=== PATIENT | female | born 1930 | race Caucasian/White ===

== ENCOUNTER 2016-10-10 12:55 | Emergency (ER) | payer MEDICARE, OTHER ==
[~2016-10-10] VITALS: Ht 162.6 cm; Wt 65.0 kg
[2016-10-10 13:11] VITALS: Ht 162.6 cm; Wt 65.0 kg
[2016-10-10] MEDS ORDERED: SOD CHLORIDE 0.9% 500 ML IV STA (18:12)
[2016-10-10 18:44] LABS: ADD SCAN DIFF NO
[2016-10-10 18:49] LABS: BASOPHILS % 0.1 % (0.0-2.0); EOSINOPHILS % 0.4 % (0.0-7.0); HEMATOCRIT 37.4 % (37.0-47.0); HEMOGLOBIN 11.5 g/dl (12.0-16.0); LYMPHOCYTES % 13.4 % (15.0-51.0); MEAN CORPUSCULAR HEMOGLOBIN 27.9 pg (29.0-33.0); MEAN CORPUSCULAR HGB CONC 30.7 g/dl (32.0-37.0); MEAN CORPUSCULAR VOLUME 90.8 fl (82.0-101.0); MEAN PLATELET VOLUME 10.3 fl (7.4-10.4); MONOCYTE # 0.7 10^3/ul (0.3-0.9); MONOCYTES % 8.4 % (0.0-11.0); NEUTROPHILS % 77.6 % (39.0-77.0); PLATELET COUNT 137 10^3/UL (140-415); RED BLOOD COUNT 4.12 10^6/ul (4.20-5.40); RED CELL DISTRIBUTION WIDTH 13.5 % (11.5-14.5); WHITE BLOOD COUNT 7.8 10^3/ul (4.8-10.8)
[2016-10-10] MEDS ORDERED: IBUP400T22 PO ×2 (18:55→19:56)
[2016-10-10] MEDS ORDERED: METF850T PO ×2 (18:56→19:29)
[2016-10-10 19:02] LABS: ANION GAP 12 (8-16); BLOOD UREA NITROGEN 12 mg/dl (7-20); CALCIUM 9.6 mg/dl (8.4-10.2); CARBON DIOXIDE 24 mmol/L (21-31); CHLORIDE 104 mmol/L (97-110); CREATININE 0.62 mg/dl (0.44-1.00); GLUCOSE 191 mg/dl (70-220); INR 1.02; POTASSIUM 4.6 mmol/L (3.5-5.1); PROTIME 13.4 Sec (12.2-14.2); SODIUM 135 mmol/L (135-144)
[2016-10-10 19:03] LABS: PARTIAL THROMBOPLASTIN TIME 26.9 Sec (25.0-35.0)
[2016-10-10 19:07] LABS: D-DIMER 556.25 ng/ml (<460)
[2016-10-10 19:15] LABS: B-TYPE NATRIURETIC PEPTIDE 539 PG/ML (0-450); TROPONIN-I < 0.012 ng/ml (0.00-0.12)
--- NOTE | 2016-10-10 19:21 | RADRPT ---
PROCEDURE: XR Chest 1 View. CLINICAL INDICATION: Chest pain TECHNIQUE: AP view of the chest was obtained. COMPARISON: None. FINDINGS: The heart size is within normal limits. Calcified atherosclerosis is noted in the aorta. Scattered atelectasis is identified in the left lower lobe and at the right lung base. No consolidations are i dentified. No pneumothorax is seen. The osseous structures are osteopenic, but appear grossly inta ct. Degenerative changes are seen in the shoulders. IMPRESSION: Calcified atherosclerosis in the aorta. Scattered atelectasis in the left lower lobe and at the right lung base. RPTAT: AA .Graham Vela MD, MD Date Time Electronically viewed and signed by .Graham Vela MD, on 10/10/2016 19:20 .P/
--- NOTE | 2016-10-10 19:26 | ERD ---
ER Documentation Chief Complaint Date/Time DATE: 10/10/16 TIME: 19:25 Chief Complaint NON RADIATING CP.SORE THROAT X 3 DAYS HPI 86-year-old female. [employer]ular Kn[employer] C[employer] use. [place]istanian-speaking. The patient describes 8 months of cough that is dry, nonproductive. She denies any fevers or chills. She is describing some mild sore throat and chest pain with coughing over this timeframe. She has not had a chest x-ray during this timeframe. It appears she has been going to urgent care clinics, she has tried antibiotics with no improvement. She denies any weight loss, no pleuritic pain, no exertional symptoms, no calf swelling. She has a history of diabetes. She is a non-smoker. ROS All systems reviewed and are negative except as per history of present illness. Medications Home Meds Active Scripts Albuterol Sulfate* (Ventolin HFA*) 18 Gm Hfa.aer.ad, 2 PUFF INHALATION Q4H, #1 INHALER Prov:PELON HALL MD 10/10/16 Azithromycin* (Zithromax*) 250 Mg Tablet, 250 MG PO .ZPACK DIRECTED, #6 TAB TAKE 500 MG (2 TABS) THE FIRST DAY THEN 250 MG (1 TAB) DAYS 2-5 Prov:PELON HALL MD 10/10/16 Reported Medications Ibuprofen* (Ibuprofen*) 400 Mg Tablet, 400 MG PO Q6H Y for PAIN, TAB 10/10/16 Metformin Hcl* (Metformin Hcl*) 850 Mg Tablet, 850 MG PO WITH BREAKFAST DINNE, # 60 TAB 10/10/16 Discontinued Reported Medications Metformin Hcl* (Metformin Hcl*) 850 Mg Tablet, 850 MG PO WITH BREAKFAST DINNE, # 60 TAB 10/10/16 Ibuprofen* (Ibuprofen*) 400 Mg Tablet, 400 MG PO Q6H Y for PAIN, TAB 10/10/16 Allergies Allergies: Coded Allergies: No Known Allergy (Verified Allergy, Unknown, 05/30/08) PMhx/Soc Medical and Surgical Hx: pt denies Medical Hx, pt denies Surgical Hx Hx Alcohol Use: No Hx Substance Use: No Hx Tobacco Use: No Smoking Status: Never smoker FmHx Family History: diabetes Physical Exam Vitals Vital Signs Date Time Temp Pulse Resp B/P Pulse Ox O2 Delivery O2 Flow Rate FiO2 10/10/16 22:27 108 18 144/81 96 Room Air 10/10/16 21:18 98.1 113 18 141/77 97 Room Air 10/10/16 19:31 97.9 100 16 136/66 98 Room Air 10/10/16 18:00 98.0 103 16 154/78 98 Room Air 10/10/16 13:11 97.9 89 18 168/76 98 Physical Exam General: Well developed, well nourished, no acute distress Head: Normocephalic, atraumatic. Eyes: Pupils equally reactive, EOM intact ENT: Moist mucous membranes Neck: Supple, no lymphadenopathy Respiratory: Lungs clear bilaterally, no distress Cardiovascular: RRR, no murmurs, rubs, or gallops Abdominal: Soft, non-tender, non-distended, no peritoneal signs : Deferred MSK: No edema, no unilateral swelling, 5/5 strength Neurologic: Alert and oriented, moving all extremities, normal speech, no focal weakness, no cerebellar signs Skin: No rash Psych: Normal mood Result Diagram: 10/10/16182910/10/16 1830 Results 24 hrs Laboratory Tests Test 10/10/16 18:30 White Blood Count 7.810^3/ul Red Blood Count 4.1210^6/ul Hemoglobin 11.5g/dl Hematocrit 37.4% Mean Corpuscular Volume 90.8fl Mean Corpuscular Hemoglobin 27.9pg Mean Corpuscular Hemoglobin Concent 30.7g/dl Red Cell Distribution Width 13.5% Platelet Count 79106^3/UL Mean Platelet Volume 10.3fl Neutrophils % 77.6% Lymphocytes % 13.4% Monocytes % 8.4% Eosinophils % 0.4% Basophils % 0.1% Nucleated Red Blood Cells % 0.0/100WBC Neutrophils # 6.010^3/ul Lymphocytes # 1.010^3/ul Monocytes # 0.710^3/ul Eosinophils # 0.010^3/ul Basophils # 0.010^3/ul Nucleated Red Blood Cells # 0.010^3/ul Prothrombin Time 13.4Sec Prothrombin Time Ratio 1.0 INR International Normalized Ratio 1.02 Activated Partial Thromboplast Time 26.9Sec D-Dimer 556.25ng/ml D-Dimer Comment Sodium Level 135mmol/L Potassium Level 4.6mmol/L Chloride Level 104mmol/L Carbon Dioxide Level 24mmol/L Anion Gap 12 Blood Urea Nitrogen 12mg/dl Creatinine 0.62mg/dl Glucose Level 191mg/dl Calcium Level 9.6mg/dl Troponin I < 0.012ng/ml B-Type Natriuretic Peptide 539PG/ML Current Medications Medications (Trade) Dose Ordered Sig/Jerry Route PRN Reason Start Time Stop Time Status Last Admin Dose Admin Sodium Chloride (NS) 500 ml @ 500 mls/hr Q1H STAT IV 10/10/16 18:12 10/10/16 19:11 DC 10/10/16 18:38 IV Flush 10 ml 10 ml STK-MED ONCE .ROUTE 10/10/16 19:53 10/10/16 19:54 DC 10/10/16 19:56 Sodium Chloride 100 ml @ ud STK-MED ONCE .ROUTE 10/10/16 19:53 10/10/16 19:54 DC 10/10/16 19:56 Iohexol (Omnipaque) 100 ml @ ud STK-MED ONCE .ROUTE 10/10/16 19:53 10/10/16 19:54 DC 10/10/16 19:56 Procedures/MDM EKG, MONITORS, & DIAGNOSTIC IMAGING: EKG: I reviewed and interpreted a 12-lead EKG. Rhythm: Normal sinus rhythm Ectopy: None Intervals: No abnormalities ST segments: No elevations or depressions T waves: No contiguous inversions Chest x-ray: I reviewed and interpreted a 1 view of the chest Mediastinum: No enlargement Cardiac silhouette: No cardiomegaly Airspace: Clear lung torres bilaterally without evidence of pneumothorax Bones: No evidence of fracture CT PE: IMPRESSION: 1. No pulmonary embolism is identified. 2. Bilateral bronchial wall thickening is noted, suggesting bronchitis. 3. Coronary arterial and aortic atherosclerotic calcifications are present. 4. No mass, lymphadenopathy, or focal acute infiltrate is seen. 5. Indeterminate 2.3 cm left thyroid nodule is noted - consider ultrasound correlation. RPTAT: HDWR LAB INTERPRETATION: Positive d-dimer, normal white count, negative troponin MEDICAL DECISION MAKING: I do not believe this is a cardiogenic process. The patient has 8 months of cough. No signs of CHF. The patient is unlikely to have a viral process given this chronicity of cough. Consider medication related, age-related, reflux. Also consider possible pulmonary embolism, wells low risk criteria therefore d- dimer appropriate. Again, given duration of symptoms infectious process less likely. ER COURSE: D-dimer positive. CTPA ordered. CTPA shows evidence of bronchitis. It would be reasonable to start this patient on azithromycin, inhaler. The patient was referred to primary care physician. She has no hypoxia, no troponin elevation she is otherwise well- appearing with multiple months of symptoms that are unchanged. The patient is safe for discharge. I kept the patient and/or family informed of laboratory and diagnostic imaging results throughout the emergency room course. DISPOSITION PLAN: We discussed follow up with the patient's primary care doctor within 24 to 48 hours as needed. We also discussed return to the emergency room for worsening symptoms or worsening condition. Outpatient referral: [None required] Discharge Medications: Azithromycin, Ventolin Departure Diagnosis: Primary Impression: Acute bronchitis Bronchitis organism: unspecified organism Qualified Code: J20.9 - Acute bronchitis, unspecified organism Additional Impression: Chest wall pain PELON HALL MD Oct 10, 2016 19:26
[2016-10-10] MEDS ORDERED: SOD CHLORIDE 0.9% 100 ML ONE (19:53)
[2016-10-10] MEDS ORDERED: IOHEXOL 100 ML ONE (19:53)
[2016-10-10 21:18] VITALS: TEMP 98.1
--- NOTE | 2016-10-10 21:19 | RADRPT ---
PROCEDURE: CTA Chest CLINICAL INDICATION: Chest pain TECHNIQUE: CTA of the chest was performed following the uncomplicated IV administration of 90 cc O mnipaque 350. Coronal and sagittal images were reconstructed from the axial data set. 3-D volumetr ic rendered post processing was performed as well. One or more of the following dose reduction tech niques were used: automated exposure control, adjustment of the mA and/or kV according to patient si ze, use of iterative reconstruction technique. CTDI = 10.36 mGy. DLP = 388.25 mGy-cm. COMPARISON: Chest x-ray, 10/10/2016 FINDINGS: No filling defect is present to suggest pulmonary embolism. There is no evidence for pulmonary coco rial hypertension. There is mild bibasilar atelectasis / scarring. No acute infiltrate, pleural effusion, pulmonary ed sylvia or pneumothorax is identified. Bilateral bronchial wall thickening is noted, suggesting bronchi tis. The central tracheobronchial tree is otherwise clear. No pulmonary nodule or mass is seen. The heart size is normal without pericardial effusion. Coronary arterial and aortic atherosclerotic calcifications are present. There is no thoracic aortic aneurysm or dissection. No mediastinal, h ilar, axillary or supraclavicular lymphadenopathy is identified. 2.3 cm left thyroid nodule is inci dentally noted (3-11). Visualized portions of the upper abdomen demonstrate no acute abnormality. The osseous structures a re remarkable for degenerative spondylosis of the spine. No osteolytic or osteoblastic lesion is see n. IMPRESSION: 1. No pulmonary embolism is identified. 2. Bilateral bronchial wall thickening is noted, suggesting bronchitis. 3. Coronary arterial and aortic atherosclerotic calcifications are present. 4. No mass, lymphadenopathy, or focal acute infiltrate is seen. 5. Indeterminate 2.3 cm left thyroid nodule is noted - consider ultrasound correlation. RPTAT: HDWR .Uche Webb MD, MD Date Time Electronically viewed and signed by .Uche Webb MD, MD on 10/10/2016 21:19 .R/
[2016-10-10] MEDS ORDERED: AZIT250T94 PO (22:38)
[2016-10-10] MEDS ORDERED: ALBU18HF INHALATION (22:38)
[2016-10-10] MEDS ORDERED: IPRATROPIUM (NEB) 0.5 MG/2.5 ML AMP NEB STA (23:01)
[2016-10-10] MEDS ORDERED: ALBUTEROL 0.083% (NEB) 2.5 MG/3 ML AMP NEB STA (23:01)
[2016-10-10 23:03] VITALS: BP 150/80; PULSE 111; RESP 22
== END 2016-10-10 23:39 | disposition home or self-care (01) ==
LOC: E/R 12:55
DX: J20.9 Acute bronchitis, unspecified (principal); R07.89 Other chest pain; Z79.84 Long term (current) use of oral hypoglycemic drugs
CPT/HCPCS: 36415; 71010; 71275; 80048; 83880; 84484; 85025; 85378; 85610; 85730; 93005; 94664; 96360; 99285; J7040; Q9967